=== PATIENT | female | born 1930 | race Two or more races ===

== ENCOUNTER 2018-02-08 10:14 | Outpatient (CLI) | payer OTHER | END 2018-02-08 10:20 | disposition home or self-care (01) | LOC: RAD 10:14 | DX: M17.0 Bilateral primary osteoarthritis of knee (principal) ==

== ENCOUNTER → 2018-07-18 | Outpatient (CLI) | payer OTHER | END | disposition home or self-care (01) | LOC: RAD 501 13:46 | DX: M26.601 Right temporomandibular joint disorder, unspecified (principal) ==